=== PATIENT | female | born 1955 | race Caucasian/White ===

== ENCOUNTER → 2016-11-21 | Outpatient (CLI) | payer BC | LOC: FIMAGING 12:02 | DX: Z12.31 Encounter for screening mammogram for malignant neoplasm of breast (principal); Z85.3 Personal history of malignant neoplasm of breast; Z80.3 Family history of malignant neoplasm of breast | CPT/HCPCS: G0202 ==

== ENCOUNTER → 2017-12-16 | Outpatient (CLI) | payer BC | LOC: FIMAGING 11:23 | DX: Z12.31 Encounter for screening mammogram for malignant neoplasm of breast (principal); N85.3 Subinvolution of uterus; Z80.3 Family history of malignant neoplasm of breast ==